=== PATIENT | female | born 1970 | race Caucasian/White ===

== ENCOUNTER 2023-11-30 09:16 | Emergency (ER) | payer MEDICAID ==
[~2023-11-30] VITALS: Ht 170.2 cm; Wt 51.5 kg
[2023-11-30 09:20] VITALS: BP 185/105
[2023-11-30] MEDS: oxyCODONE IR 5mg (immed. release) tablet PO ONE (10:18)
[2023-11-30 10:22] VITALS: PULSE 91; RESP 18; TEMP 98.6; O2SAT 97
== END 2023-11-30 10:24 | disposition home or self-care (01) ==
LOC: ER 09:17
DX: F10.90 Alcohol use, unspecified, uncomplicated (principal)
CPT/HCPCS: 99283